=== PATIENT | female | born 1990 | race Two or more races ===

== ENCOUNTER 2019-03-16 17:32 | Emergency (ER) | payer OTHER ==
[~2019-03-16] VITALS: Ht 167.6 cm; Wt 75.0 kg
[2019-03-16 19:51] VITALS: BP 122/78
== END 2019-03-16 20:09 | disposition home or self-care (01) ==
LOC: ER 17:32
DX: Z48.01 Encounter for change or removal of surgical wound dressing (principal); Z98.890 Other specified postprocedural states
CPT/HCPCS: 99283